=== PATIENT | female | born 2000 | race Two or more races ===

== ENCOUNTER 2021-11-06 01:37 | Emergency (ER) | payer MEDICAID ==
[~2021-11-06] VITALS: Ht 152.4 cm; Wt 64.4 kg
[2021-11-06] MEDS ORDERED: IOHEXOL 350 MG/ML 100ML IJ ONE (03:45)
[2021-11-06 04:19] VITALS: BP 118/74
[2021-11-06] MEDS ORDERED: SULF400T11 PO (04:36)
[2021-11-06] MEDS ORDERED: IBUP800T27 PO (04:36)
[2021-11-06] MEDS ORDERED: CEPH500C PO (04:46)
== END 2021-11-06 04:42 | disposition home or self-care (01) ==
LOC: ER 01:39
DX: N39.0 Urinary tract infection, site not specified (principal)
CPT/HCPCS: 71101; 81002; 81025